=== PATIENT | male | born 1990 | race Hispanic/Latino ===

== ENCOUNTER 2022-01-03 15:00 | Emergency (ER) | payer SELFPAY ==
[2022-01-03] MEDS ORDERED: MORPHINE 4 MG/ML SYR ONE (16:06)
[2022-01-03] MEDS ORDERED: ONDANSETRON 4 MG/2 ML VIAL ONE (16:07)
[2022-01-03] MEDS ORDERED: MIDAZOLAM HCL 2 MG/2 ML INJ ONE ×2 (17:04→17:05)
[2022-01-03] MEDS ORDERED: ETOMIDATE 20 MG/10 ML VIAL IV ONE (17:04)
--- NOTE | 2022-01-03 17:18 | RAD REPORT ---
EXAM DESCRIPTION: RAD - Shoulder Right 2 View - 01/03/2022 5:09 pm CLINICAL HISTORY: Right shoulder pain FINDINGS: Anterior dislocation right humeral head No fractures seen
[2022-01-03] MEDS ORDERED: NA CHLORIDE 0.9% 500 ML ONE (17:26)
--- NOTE | 2022-01-03 18:29 | RAD REPORT ---
EXAM DESCRIPTION: RAD - Shoulder Right 2 View - 01/03/2022 6:14 pm CLINICAL HISTORY: Right shoulder pain FINDINGS: Previously described humeral dislocation has been reduced. A Hill-Sachs deformity is present
--- NOTE | 2022-01-03 18:38 | ER ---
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 ph Coronavirus screen: Vaccine status: Patient reports being unvaccinated. Ebola Screen: No symptoms or risks identified at this time. Initial Sepsis Screen: Does the patient meet any 2 criteria? No. Patient's initial sepsis screen is negative. Does the patient have a suspected source of infection? No. Patient's initial sepsis screen is negative. Risk Assessment: Do you want to hurt yourself or someone else? Patient reports no desire to harm self or others. Onset of symptoms was January 03, 2022. 15:24 Method Of Arrival: Wheelchair 15:24 Acuity: AUDREY 4 ph 16:00 Care prior to arrival: None. Mechanism of Injury: Fall fork lift approximately 3 feet. vg1 16:00 Trauma event details: Injury occurred in the [facility]. vg1 17:05 Acuity: AUDREY 3 vg1 Trauma Activation: Physician: ED Physician; Name: Jorge; Notified At: ; Arrived At: Physician: General Surgeon; Name: ; Notified At: ; Arrived At: Physician: Radiology; Name: ; Notified At: ; Arrived At: Physician: Respiratory; Name: ; Notified At: ; Arrived At: Physician: Lab; Name: ; Notified At: ; Arrived At: Historical: - Allergies: 15:25 No Known Allergies; ph - PMHx: 15:25 None; ph - Immunization history:: Adult Immunizations unknown. - Social history:: Smoking status: unknown. - Immunization history: Last tetanus immunization: unknown. Screenin:00 Abuse screen: Denies threats or abuse. Nutritional screening: No deficits noted. vg1 Tuberculosis screening: No symptoms or risk factors identified. 16:00 Fall Risk No fall in past 12 months (0 pts). No secondary diagnosis (0 pts). IV access vg1 (20 points). Ambulatory Aid- None/Bed Rest/Nurse Assist (0 pts). Gait- Normal/Bed Rest/Wheelchair (0 pts) Mental Status- Oriented to own ability (0 pts). Total Moore Fall Scale indicates No Risk (0-24 pts). Primary Survey: 16:00 NO uncontrolled hemorrhage observed. A: The patient is alert. Breathing/Chest: vg1 Respiratory pattern: regular, Respiratory effort: spontaneous, Breath sounds: clear, bilaterally. Chest inspection: symmetrical rise and fall of the chest. Circulation: Skin color: pink. Disability Alert. Exposure/Environment: A warming method has been applied: A warm blanket has been provided to the patient. 16:30 Reassessment Airway Airway Patent Breathing/Chest Respiratory pattern Regular vg1 Respiratory effort Spontaneous Breath sounds Clear Chest inspection Symmetrical Circulation Color [place] Disability Alert. Secondary Survey: 16:00 HEENT: No deficits noted. Gastrointestinal: Abdomen is soft. : No signs and/or vg1 symptoms were reported regarding the genitourinary system. Musculoskeletal: Range of motion: limited in right shoulder. Assessment: 16:14 General: Appears in no apparent distress. uncomfortable, Behavior is calm, cooperative. vg1 Pain: Complains of pain in Right shoulder Pain currently is 10 out of 10 on a pain scale. Neuro: Level of Consciousness is awake, alert, obeys commands, Oriented to person, place, time, situation. EENT: No signs and/or symptoms were reported regarding the EENT system. Cardiovascular: Patient's skin is warm and dry. Respiratory: Airway is patent Respiratory effort is even, unlabored. GI: No signs and/or symptoms were reported involving the gastrointestinal system. : No signs and/or symptoms were reported regarding the genitourinary system. Derm: Skin is intact, is healthy with good turgor. Musculoskeletal: Range of motion: limited in right shoulder. 17:00 Reassessment: Patient appears in no apparent distress at this time. No changes from vg1 previously documented assessment. Patient and/or family updated on plan of care and expected duration. Pain level reassessed. Patient is alert, oriented x 3, equal unlabored respirations, skin warm/dry/pink. 17:15 Reassessment: conscious sedation consent for signed; please refer to conscious sedation vg1 flow sheet for further information. 18:00 Reassessment: Patient appears in no apparent distress at this time. Patient and/or vg1 family updated on plan of care and expected duration. Pain level reassessed. Patient is alert, oriented x 3, equal unlabored respirations, skin warm/dry/pink. Patient states feeling better. 18:55 Reassessment: Patient appears in no apparent distress at this time. Patient and/or vg1 family updated on plan of care and expected duration. Pain level reassessed. Patient is alert, oriented x 3, equal unlabored respirations, skin warm/dry/pink. Patient states feeling better. Vital Signs: 15:24 BP 142 / 98; Pulse 88; Resp 18; Temp 98.2; Pulse Ox 98% on R/A; Weight 80 kg; Height 5 ph ft. 10 in. (178 cm); 17:00 BP 142 / 77; Pulse 82; Resp 17; Pulse Ox 97% on R/A; vg1 18:00 BP 137 / 85; Pulse 95; Resp 16; Pulse Ox 100% on R/A; vg1 18:30 BP 140 / 88; Pulse 90; Resp 15; Pulse Ox 98% on R/A; vg1 15:24 Body Mass Index 25.25 (80.00 kg, 178 cm) ph [place] Coma Score: 16:00 Eye Response: spontaneous(4). Verbal Response: oriented(5). Motor Response: obeys vg1 commands(6). Total: 15. 17:00 Eye Response: spontaneous(4). Verbal Response: oriented(5). Motor Response: obeys vg1 commands(6). Total: 15. 18:00 Eye Response: spontaneous(4). Verbal Response: oriented(5). Motor Response: obeys vg1 commands(6). Total: 15. 18:30 Eye Response: spontaneous(4). Verbal Response: oriented(5). Motor Response: obeys vg1 commands(6). Total: 15. Trauma Score (Adult): 16:00 Eye Response: spontaneous(1); Verbal Response: oriented(1); Motor Response: obeys vg1 commands(2); Systolic BP: > 89 mm Hg(4); Respiratory Rate: 10 to 29 per min(4); Eris Score: 15; Trauma Score: 12 ED Course: 15:00 Patient arrived in ED. ds1 15:25 Triage completed. ph 15:25 Arm band placed on Patient placed in waiting room, Patient notified of wait time. X-ray ph ordered. 15:40 [facility] cp 15:40 Adolph Patel MD is Attending Physician. cp 15:59 Sharmila Jules RN is Primary Nurse. vg1 16:00 Patient has correct armband on for positive identification. Bed in low position. Call vg1 light in reach. Side rails up X 1. Adult w/ patient. 16:00 Patient maintains SpO2 saturation greater than 95% on room air. vg1 16:00 Thermoregulation: warm blanket given to patient. vg1 17:10 Shoulder Right (2 View) XRAY In Process Unspecified. EDMS 18:14 XRAY Shoulder RIGHT 2 view In Process Unspecified. EDMS 18:36 Wayne Harrell MD is Referral Physician. cp 18:55 No provider procedures requiring assistance completed. IV discontinued, intact, vg1 bleeding controlled, No redness/swelling at site. Pressure dressing applied. Administered Medications: 16:08 Drug: Zofran (Ondansetron) 4 mg Route: IVP; Site: left antecubital; vg1 16:40 Follow up: Response: No adverse reaction vg1 16:10 Drug: morphine 4 mg Route: IVP; Site: left antecubital; vg1 16:40 Follow up: Response: No adverse reaction; No change in condition vg1 17:14 Drug: NS 0.9% 500 ml Route: IV; Rate: bolus; Site: left antecubital; vg1 18:37 Follow up: IV Status: Completed infusion; IV Intake: 500ml vg1 17:18 Drug: Versed (midazolam) 2 mg Route: IVP; Site: left antecubital; vg1 18:37 Follow up: Response: No adverse reaction vg1 17:20 Drug: Versed (midazolam) 2 mg Route: IVP; Site: left antecubital; vg1 18:37 Follow up: Response: No adverse reaction vg1 17:24 Drug: Etomidate 10 mg Route: IVP; Site: left antecubital; vg1 18:37 Follow up: Response: No adverse reaction vg1 18:36 Not Given (Physician Discretion): Etomidate 10 mg IVP once vg1 Intake: 18:30 IV: 500ml (IV Fluid); Total: 500ml. vg1 18:37 IV: 500ml; Total: 1000ml. vg1 Outcome: 18:30 Discharged to home ambulatory, with family. vg1 18:30 Condition: improved 18:30 Discharge instructions given to patient, Instructed on discharge instructions, follow up and referral plans. medication usage, Demonstrated understanding of instructions, follow-up care, medications, Prescriptions given X 2. 18:30 Patient's length of stay in the Emergency Department was greater than 2 hours. evaluation pt after conscious sedation procedure.Patient's length of stay extended due to 18:38 Discharge ordered by . pradip 18:59 Patient left the ED. vg1 Signatures: Dispatcher [employer] EDDE Josephine Sorensen ds1 iYng Danielson, RN RN Adolph Dean PA PA cp Garcia, Victoria, RN RN vg1
--- NOTE | 2022-01-03 18:38 | EDPHYS ---
Physician Documentation [facility] Name: Vipul Wiggins Age: 31 yrs Sex: Male : 1990 Arrival Date: 01/03/2022 Time: 15:00 Bed 24 Private MD: ED Physician Adolph Patel HPI: 01/03 15:43 This 31 yrs old Male presents to ER via Wheelchair with complaints of Fall cp Injury. 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 cp 15:43 Onset: The symptoms/episode began/occurred just prior to arrival. Associated injuries: cp The patient sustained right shoulder. Severity of symptoms: in the emergency department the symptoms are unchanged. Historical: - Allergies: 15:25 No Known Allergies; ph - PMHx: 15:25 None; ph - Immunization history:: Adult Immunizations unknown. - Social history:: Smoking status: unknown. - Immunization history: Last tetanus immunization: unknown. ROS: 15:50 MS/extremity: Positive for injury or acute deformity, decreased range of motion, pain, cp of the right shoulder. Exam: 15:55 Constitutional: The patient appears in no acute distress, alert, awake, non-toxic, well cp developed, well nourished, in obvious pain, uncomfortable. 15:55 Head/Face: Normocephalic, atraumatic. cp 15:55 Neck: C-spine: vertebral tenderness, is not appreciated, crepitus, is not appreciated, ROM/movement: is normal, is supple, without pain, no range of motions limitations. 15:55 Chest/axilla: Inspection: normal, Palpation: is normal, no crepitus, no tenderness. 15:55 Cardiovascular: Rate: normal, Rhythm: regular. 15:55 Respiratory: the patient does not display signs of respiratory distress, Respirations: normal, no use of accessory muscles, no retractions, labored breathing, is not present, Breath sounds: are clear throughout, no decreased breath sounds, no stridor, no wheezing. 15:55 Abdomen/GI: Inspection: abdomen appears normal, Palpation: abdomen is soft and non-tender, in all quadrants. 15:55 Back: pain, is absent, ROM is normal. 15:55 Musculoskeletal/extremity: Extremities: grossly normal except: noted in the right shoulder: decreased ROM, deformity, pain, tenderness, ROM: limited active range of motion, in the right shoulder. 15:55 Neuro: Orientation: to person, place \T\ time. Mentation: is normal, Sensation: no obvious gross deficits. Vital Signs: 15:24 BP 142 / 98; Pulse 88; Resp 18; Temp 98.2; Pulse Ox 98% on R/A; Weight 80 kg; Height 5 ph ft. 10 in. (178 cm); 17:00 BP 142 / 77; Pulse 82; Resp 17; Pulse Ox 97% on R/A; vg1 18:00 BP 137 / 85; Pulse 95; Resp 16; Pulse Ox 100% on R/A; vg1 18:30 BP 140 / 88; Pulse 90; Resp 15; Pulse Ox 98% on R/A; vg1 15:24 Body Mass Index 25.25 (80.00 kg, 178 cm) ph [place] Coma Score: 16:00 Eye Response: spontaneous(4). Verbal Response: oriented(5). Motor Response: obeys vg1 commands(6). Total: 15. 17:00 Eye Response: spontaneous(4). Verbal Response: oriented(5). Motor Response: obeys vg1 commands(6). Total: 15. 18:00 Eye Response: spontaneous(4). Verbal Response: oriented(5). Motor Response: obeys vg1 commands(6). Total: 15. 18:30 Eye Response: spontaneous(4). Verbal Response: oriented(5). Motor Response: obeys vg1 commands(6). Total: 15. Trauma Score (Adult): 16:00 Eye Response: spontaneous(1); Verbal Response: oriented(1); Motor Response: obeys vg1 commands(2); Systolic BP: > 89 mm Hg(4); Respiratory Rate: 10 to 29 per min(4); [place] Score: 15; Trauma Score: 12 Procedures: 18:30 Moderate sedation: Pre-procedure assessment: the patient has been NPO 4 hour(s) prior cp to arrival, Airway assessment: able to hyperextend neck, able to maintain airway, can open mouth without difficulty, Monitoring during procedure: color television console monitor, continuous pulse oximetry, nurse at bedside at all times, Medications employed: Etomidate, 10 mg(s), Versed, 4 mg(s), Post-procedure assessment: the patient is moderately sedated, Respiratory status: even and unlabored, a reversal agent was not used. 18:30 Reduction: of the right shoulder, using traction, Immobilized with shoulder cp immobilizer. Patient tolerated well. Post reduction film - reveals normal alignment. MDM: 15:40 Patient medically screened. cp 18:00 Differential diagnosis: closed head injury, contusion, fracture, sprain, strain, cp dislocation. 18:38 Data reviewed: vital signs, nurses notes, radiologic studies, plain films. cp 18:38 Test interpretation: by ED physician or midlevel provider: plain radiologic studies. cp Counseling: I had a detailed discussion with the patient and/or guardian regarding: the historical points, exam findings, and any diagnostic results supporting the discharge/admit diagnosis, radiology results, the need for outpatient follow up, a orthopedic surgeon, to return to the emergency department if symptoms worsen or persist or if there are any questions or concerns that arise at home. Response to treatment: the patient's symptoms have resolved after treatment, shoulder reduced, and as a result, I will discharge patient. 01/03 15:26 Order name: Shoulder Right (2 View) XRAY; Complete Time: 17:36 ph 01/03 17:30 Order name: XRAY Shoulder RIGHT 2 view; Complete Time: 18:34 cp 01/03 18:35 Interpretation: Reviewed. 01/03 15:43 Order name: IV; Complete Time: 16:13 cp Administered Medications: 16:08 Drug: Zofran (Ondansetron) 4 mg Route: IVP; Site: left antecubital; vg1 16:40 Follow up: Response: No adverse reaction vg1 16:10 Drug: morphine 4 mg Route: IVP; Site: left antecubital; vg1 16:40 Follow up: Response: No adverse reaction; No change in condition vg1 17:14 Drug: NS 0.9% 500 ml Route: IV; Rate: bolus; Site: left antecubital; vg1 18:37 Follow up: IV Status: Completed infusion; IV Intake: 500ml vg1 17:18 Drug: Versed (midazolam) 2 mg Route: IVP; Site: left antecubital; vg1 18:37 Follow up: Response: No adverse reaction vg1 17:20 Drug: Versed (midazolam) 2 mg Route: IVP; Site: left antecubital; vg1 18:37 Follow up: Response: No adverse reaction vg1 17:24 Drug: Etomidate 10 mg Route: IVP; Site: left antecubital; vg1 18:37 Follow up: Response: No adverse reaction vg1 18:36 Not Given (Physician Discretion): Etomidate 10 mg IVP once vg1 Disposition Summary: 01/03/22 18:38 Discharge Ordered Location: Home cp Problem: new cp Symptoms: have improved cp Condition: Stable cp Diagnosis - Other dislocation of right shoulder joint, initial encounter cp Followup: cp - With: Wayne Harrell MD - When: 2 - 3 days - Reason: Recheck today's complaints Discharge Instructions: - Discharge Summary Sheet cp - Shoulder Dislocation cp Forms: - Medication Reconciliation Form cp - Thank You Letter cp - Antibiotic Education cp - Prescription Opioid Use cp Prescriptions: - Naprosyn 500 mg Oral Tablet - take 1 tablet by ORAL route 2 times per day take with food; 20 tablet; Refills: cp 0, Product Selection Permitted - Tylenol-Codeine #3 300 mg-30 mg Oral - take 2 tablet by ORAL route every 8-10 hours; 20 tablet; Refills: 0, Product cp Selection Permitted Signatures: Dispatcher [employer] Ying Fuller, RN RN Adolph Dean PA PA cp Garcia, Victoria RN RN vg1
[2022-01-03 19:53] VITALS: TEMP 98.2
[2022-01-03 19:57] VITALS: BP 140/88; O2SAT 98
== END 2022-01-03 18:59 | disposition home or self-care (01) ==
LOC: EDBD 15:00 → ER 15:00
PROC: 0RSJXZZ Reposition Right Shoulder Joint, External Approach (ICD-10-PCS; principal; 2022-01-03)
DX: S43.084A Other dislocation of right shoulder joint, initial encounter (principal); W31.89XA Contact with other specified machinery, initial encounter
CPT/HCPCS: 96361; 96374; 96375; 99284; J2250; J2405; J7040